=== PATIENT | male | born 1945 | race Caucasian/White ===

== ENCOUNTER 2016-12-22 18:56 | Emergency (ER) | payer MEDICARE, BC ==
--- NOTE | 2016-12-22 20:31 | EDM.PDOC ---
ED HISTORY OF PRESENT ILLNESS - General Chief Complaint: Respiratory Problem Stated Complaint: SINUS INFECTION W/CHILLS Time Seen by Provider: 12/22/16 20:29 Source of Information: Reports: Patient History Limitations: Reports: No limitations - History of Present Illness INITIAL COMMENTS - FREE TEXT/NARRATIVE: 3 days h/o head sinus congestion chills no fever. tried OTC steroid nose spray with '0' - Related Data Allergies/ADRs: Allergies Allergy/AdvReac Type Severity Reaction Status Date / Time No Known Allergies Allergy Verified 12/22/16 19:14 Home Meds: Home Meds Aspirin [Halfprin] 81 mg PO DAILY 12/26/14 [History] Fish Oil/Dewey-3 Fatty Acids [Fish Oil] 1 tab PO BID 03/17/15 [History] Atenolol 100 mg PO DAILY 01/16/16 [History] Terazosin HCl [Terazosin] 2 mg PO BEDTIME 08/15/16 [History] Multivitamin [Multivitamins] 1 tab PO DAILY 12/22/16 [History] Past Medical History HEENT History: Reports: Sinusitis Cardiovascular History: Reports: Hypertension Gastrointestinal History: Reports: GERD Genitourinary History: Reports: Chronic renal insuffiency Musculoskeletal History: Reports: Gout Other Oncologic History: throat cancer - Infectious Disease History Infectious Disease History: Reports: Chicken pox, Measles, Mumps - Past Surgical History HEENT Surgical History: Reports: Other (see below) Other HEENT Surgeries/Procedures: nasal septum surgery Social & Family History - Family History Family Medical History: Noncontributory - Tobacco Use Smoking Status *Q: Never Smoker Second Hand Smoke Exposure: No - Caffeine Use Caffeine Use: Reports: Coffee, Soda - Alcohol Use Days Per Week of Alcohol Use: 5 Number of Drinks Per Day: 1 Total Drinks Per Week: 5 - Recreational Drug Use Recreational Drug Use: No - Living Situation & Occupation Living situation: Reports: single, alone Occupation: retired ED ROS GENERAL - Review of Systems Review Of Systems: ROS reveals no pertinent complaints other than HPI. ED EXAM, GENERAL - Physical Exam Exam: See Below Exam Limited By: No limitations General Appearance: alert, WD/WN, no apparent distress Ears: hearing grossly normal Nose: nasal swelling Throat/Mouth: Normal voice, No airway compromise, Inflammation Head: atraumatic Neck: non-tender, full range of motion Respiratory/Chest: no respiratory distress Cardiovascular: regular rate, rhythm GI/Abdominal: soft, non tender Neurological: alert, oriented, normal cognition, normal gait, no motor/sensory deficits Psychiatric: normal affect, normal mood Skin Exam: Warm, Dry Lymphatic: no adenopathy Course - Vital Signs Last Recorded V/S: Last Vital Signs Temp 36.8 C 12/22/16 21:05 Pulse 75 12/22/16 21:05 Resp 20 12/22/16 21:05 BP 154/83 H 12/22/16 21:05 Pulse Ox 94 L 12/22/16 21:05 - Orders/Labs/Meds Orders: Active Orders 24 hr Category Date Time Status CULTURE STREP A CONFIRMATION [RM] Stat Lab 12/22/16 20:28 Results STREP SCRN A RAPID W CULT CONF [RM] Stat Lab 12/22/16 20:28 Results methylPREDNISolone Sod Succ [Solu-MEDROL] Med 12/22/16 21:05 Once 125 mg IM ONETIME ONE - Re-Assessments/Exams Free Text/Narrative Re-Assessment/Exam: 12/22/16 21:06 results discussed with Pt. Departure - Departure Time of Disposition: 21:06 Disposition: Home, Self-Care 01 Condition: good Clinical Impression: Sinusitis Qualifiers: Sinusitis location: frontal Chronicity: acute Recurrence: recurrent Qualified Code(s): J01.11 - Acute recurrent frontal sinusitis Instructions: Sinusitis, Adult, [id number] Forms: ED Department Discharge Additional Instructions: 1) sleep as much as possible 2) drink lots of liquids 3) don't sleep flat 4) use humidifier in room 5) follow up at clinic or recheck as needed rx given: medrol dospak - My Orders Last 24 Hours: My Active Orders 12/22/16 20:28 CULTURE STREP A CONFIRMATION [RM] Stat STREP SCRN A RAPID W CULT CONF [RM] Stat 12/22/16 21:05 methylPREDNISolone Sod Succ [Solu-MEDROL] 125 mg IM ONETIME ONE - Assessment/Plan Last 24 Hours: My Active Orders 12/22/16 20:28 CULTURE STREP A CONFIRMATION [RM] Stat STREP SCRN A RAPID W CULT CONF [RM] Stat 12/22/16 21:05 methylPREDNISolone Sod Succ [Solu-MEDROL] 125 mg IM ONETIME ONE
[2016-12-22 21:05] VITALS: BP 154/83
[2016-12-22] MEDS ORDERED: methylPREDNISolone Sodium Succinate 125 MG/2 ML SDV IM ONE (21:05)
== END 2016-12-22 21:20 | disposition home or self-care (01) ==
LOC: DL.ED 18:56
DX: J01.11 Acute recurrent frontal sinusitis (principal); K21.9 Gastro-esophageal reflux disease without esophagitis; I12.9 Hypertensive chronic kidney disease with stage 1 through stage 4 chronic kidney disease, or unspecified chronic kidney disease; N18.9 Chronic kidney disease, unspecified; Z79.82 Long term (current) use of aspirin; Z79.899 Other long term (current) drug therapy
CPT/HCPCS: 87081; 87430; 87804; 96372; 99283; J2930